=== PATIENT | male | born 1965 | race Caucasian/White ===

== ENCOUNTER 2016-04-21 09:25 | Outpatient (CLI) | payer BC, MEDICARE | END 2016-04-21 09:26 | disposition home or self-care (01) | DX: M50.30 Other cervical disc degeneration, unspecified cervical region (principal); M47.812 Spondylosis without myelopathy or radiculopathy, cervical region ==

== ENCOUNTER 2016-04-26 11:43 | Outpatient (CLI) | payer BC, MEDICARE | END 2016-04-26 11:44 | disposition home or self-care (01) | DX: E29.1 Testicular hypofunction (principal); Z79.899 Other long term (current) drug therapy ==

== ENCOUNTER 2016-05-18 09:47 | Outpatient (CLI) | payer BC, MEDICARE | END 2016-05-18 09:48 | disposition home or self-care (01) | DX: R05 Cough (principal); R50.9 Fever, unspecified ==

== ENCOUNTER 2017-06-24 08:00 | Outpatient (CLI) | payer BC, MEDICARE ==
[2017-06-24 13:11] LABS: BASOPHILS # (AUTO) 0.1 10^3/uL (0.0-0.1); BASOPHILS % (AUTO) 1.1 %; EOSINOPHILS # (AUTO) 0.4 10^3/uL (0.0-0.7); EOSINOPHILS % (AUTO) 4.3 %; HGB - HEMOGLOBIN 14.9 g/dL (14.0-18.0); LYMPHOCYTES # (AUTO) 2.6 10^3/uL (1.5-3.5); LYMPHOCYTES % (AUTO) 29.5 %; MEAN CORPUSCULAR HEMOGLOBIN 30.4 pg (27.0-31.0); MEAN CORPUSCULAR HGB CONC 34.1 g/dL (32.0-36.0); MEAN CORPUSCULAR VOLUME 89.3 fL (80.0-94.0); MEAN PLATELET VOLUME 7.4 fL (7.4-11.4); MONOCYTES # (AUTO) 0.5 10^3/uL (0.0-1.0); MONOCYTES % (AUTO) 5.9 %; NEUTROPHILS # (AUTO) 5.2 10^3/uL (1.5-6.6); NEUTROPHILS % (AUTO) 59.2 %; PLT - PLATELET COUNT 263 10^3/uL (130-450); RED BLOOD COUNT 4.89 10^6/uL (4.70-6.10); WHITE BLOOD COUNT 8.8 x10^3/uL (4.8-10.8)
[2017-06-24 13:49] LABS: ALBUMIN 4.6 g/dL (3.2-5.5); ALBUMIN/GLOBULIN RATIO 1.6 (1.0-2.2); ALKALINE PHOSPHATASE 53 IU/L (42-121); ALT ALANINE AMINOTRANSFERASE 40 IU/L (10-60); AST ASPARTATE AMINOTRANSFERASE 27 IU/L (10-42); BILIRUBIN,TOTAL 0.3 mg/dL (0.2-1.0); BUN - BLOOD UREA NITROGEN 10 mg/dL (6-20); CALCIUM 9.3 mg/dL (8.5-10.3); CARBON DIOXIDE - CO2 23 mmol/L (21-32); CHLORIDE 104 mmol/L (101-111); CHOL/HDL RATIO 4.3 (<5.0); CHOLESTEROL 160 mg/dL; CREATININE 0.8 mg/dL (0.6-1.2); GFR - MDRD 102 (>89); GLUCOSE 108 mg/dL (70-100); HDL CHOLESTEROL 37 mg/dL; LDL CHOLESTEROL,CALCULATED 100 mg/dL; LDL/HDL RATIO 2.7 (<3.6); SODIUM 136 mmol/L (135-145); TOTAL PROTEIN 7.4 g/dL (6.7-8.2); VLDL CHOLESTEROL 23 mg/dL
== END 2017-06-24 08:01 | disposition home or self-care (01) ==
LOC: LAB.N 08:00
PROVIDERS: ATTEND Physician Assistant Medical
DX: Z00.00 Encounter for general adult medical examination without abnormal findings (principal); Z79.899 Other long term (current) drug therapy; E55.9 Vitamin D deficiency, unspecified; E78.5 Hyperlipidemia, unspecified
CPT/HCPCS: 36415; 80053; 80061; 82306; 84443; 85025; G0103; 83721; 84153

== ENCOUNTER 2017-12-06 11:27 | Outpatient (CLI) | payer MEDICARE ==
--- NOTE | 2017-12-06 12:33 | XRAY Report ---
Procedure Date: 12/06/2017 Accession Number: [id number] / [id number] Procedure: XR - Chest 2 View X-Ray CPT Code: 69221 FULL RESULT: EXAM: CHEST RADIOGRAPHY EXAM DATE: 12/06/2017 12:14 PM. CLINICAL HISTORY: COSTOCHONDRITIS,RT,COPD W/ACUTE BRONCHITIS. Pain COMPARISON: 05/18/2016. TECHNIQUE: 2 views. FINDINGS: Lungs/Pleura: No focal opacities evident. No pleural effusion. No pneumothorax. Normal volumes. Mediastinum: Heart and mediastinal contours are unremarkable. Other: Stable degenerative change in the spine. IMPRESSION: Negative 2-view chest radiography for acute findings or significant change since 05/18/2016. [facility]
== END 2017-12-06 11:28 | disposition home or self-care (01) ==
LOC: DI 11:27
PROVIDERS: ATTEND Physician Assistant Medical
DX: M94.0 Chondrocostal junction syndrome [Tietze] (principal); J44.0 Chronic obstructive pulmonary disease with (acute) lower respiratory infection; J20.9 Acute bronchitis, unspecified
CPT/HCPCS: 71046

== ENCOUNTER 2018-03-03 08:59 | Outpatient (CLI) | payer MEDICARE ==
--- NOTE | 2018-03-03 16:41 | MRI Report ---
Reason: LOW BACK PAIN Procedure Date: 03/03/2018 Accession Number: [id number] / [id number] Procedure: MRI - Lumbar Spine W/O CPT Code: FULL RESULT: EXAM: MRI LUMBAR SPINE WITHOUT CONTRAST EXAM DATE: 03/03/2018 09:09 AM. CLINICAL HISTORY: Low back pain. Bilateral hip pain. COMPARISON: None. TECHNIQUE: Multiplanar, multisequence T1-weighted and fluid-sensitive sequences of the lumbar spine from T12 to S1 without contrast. Other: None. FINDINGS: Numbering assumes 5 [id number] lumbar-type vertebral bodies. Anterior wedging is seen at T11 and at T12 without marrow edema present. No abnormal signal is seen in the conus medullaris. No suspicious marrow replacement is seen. Grade 1 anterolisthesis of L5 relative to S1 is noted. L1-L2: No posterior disk protrusion. L2-L3: A minimal shallow right foraminal and far lateral protrusion is present. No central canal or foraminal stenosis. L3-L4: A minimal shallow foraminal and far lateral protrusion is seen bilaterally. Disk material attenuates the fat surrounding the L3 nerve root bilaterally. No central canal or foraminal stenosis. L4-L5: A minimal broad-based posterior disk protrusion is seen. L5-S1: A minimal posterior disk protrusion is seen with a posterior annular fissure noted. Facet/ligamentum flavum hypertrophy is seen throughout the lumbar spine, greatest at L4-L5. IMPRESSION: 1. Degenerative disk disease is seen from L2 through S1 without central canal or foraminal stenosis. There is a far lateral component to the disk protrusion bilaterally at L3-L4 with disk material attenuating the fat surrounding the L3 nerve root bilaterally. 2. No central canal or foraminal stenosis. 3. A posterior annular fissure is seen at L5-S1. 4. Minimal grade 1 anterolisthesis of L5 relative to S1 is noted. Comment: The following findings are so common in adults without low back pain that while we report their presence, they must be interpreted with caution and in the context of the clinical situation. (Reference Lolyk et al, Spine 2001) Prevalence of findings in patients without low back pain: Disk degeneration (any evidence): 92% Disk desiccation/T2 signal loss: 83% Disk height loss: 56% Disk bulge: 64% Disk protrusion: 32% Annular tear/high intensity zone: 38% [facility]
== END 2018-03-03 09:00 | disposition home or self-care (01) ==
LOC: DI 08:59
PROVIDERS: ATTEND Anesthesiology
DX: M51.26 Other intervertebral disc displacement, lumbar region (principal); M51.36 Other intervertebral disc degeneration, lumbar region; M51.37 Other intervertebral disc degeneration, lumbosacral region
CPT/HCPCS: 72148

== ENCOUNTER 2018-03-22 07:29 | Outpatient (CLI) | payer MEDICARE ==
[~2018-03-22 07:29] MED LIST: GADOBUTROL 10 MMOL/10 ML VIAL ONE
[2018-03-22] MEDS ORDERED: GADOBUTROL 10 MMOL/10 ML VIAL IVP ONE (10:31)
--- NOTE | 2018-03-22 11:30 | MRI Report ---
Reason: MALE PELVIC PAIN, GROIN PAIN LT Procedure Date: 03/22/2018 Accession Number: [id number] / [id number] Procedure: MRI - Abdomen W/WO CPT Code: FULL RESULT: EXAM: MR ABDOMEN WITH AND WITHOUT CONTRAST MR PELVIS WITH AND WITHOUT CONTRAST EXAM DATE: 03/22/2018 10:27 AM. CLINICAL HISTORY: Male pelvic pain, groin pain, left. COMPARISON: PELVIS W/WO 03/22/2018 7:42 AM. TECHNIQUE: Multiplanar breath-hold T1, T2, and DWI sequences obtained through the abdomen and pelvis on an MR scanner. Images obtained before and after administration of 10 mL Gadavist intravenous contrast. FINDINGS: Abdomen: Lung Bases: Unremarkable. Liver: The liver has normal size, morphology and signal. No evidence of mass or biliary dilatation. Gallbladder: There is a 1.2 cm cystic structure near the gallbladder fossa with a filling defect, likely atretic gallbladder with a small gallstone. Common bile duct is prominent and measures up to 1 cm. With functional absence of the gallbladder, this may be normal. Pancreas: The pancreas appears normal with no mass or ductal dilatation. Spleen: The spleen appears normal. Kidneys and Adrenals: The kidneys appear normal with no mass or hydronephrosis. There is a 1.8 cm left renal cyst. No right renal cyst. The adrenals appear normal. Bowel: The small bowel and colon appear normal with no inflammation or obstruction. Retroperitoneum: The retroperitoneal structures appear normal with no mass or lymphadenopathy. Pelvis: In the right inguinal region asymmetrically prominent lymph nodes which measure up to 1.4 cm in short axis when compared to the contralateral side. At the region of the left inguinal ligament there is a 2.1 x 1.6 cm heterogeneous area of enhancement at the entry to the left inguinal canal, possibly prior plug hernia repair. Bladder: The urinary bladder appears normal. Reproductive Organs: Small bilateral hydroceles are noted. There is questionably greater than expected enhancement of the scrotum and possibly the penile shaft, nonfocal. IMPRESSION: Heterogeneous enhancement of the entry to the left inguinal canal, possibly prior hernia repair. Asymmetrically prominent lymph nodes along the right inguinal chain in the setting of hyperenhancement of the scrotal sac hydroceles. Overall favor infectious or inflammatory etiology versus malignancy. Question atretic gallbladder with calculus, correlate to possible history of cholecystectomy. Recommendation: Testicular/inguinal canal ultrasound to evaluate for scrotal varicoceles as well as dynamically examined for inguinal hernia. Right upper quadrant ultrasound to further evaluate the gallbladder. [facility] The above findings of chronic gallbladder changes and likely left inguinal canal hernia repair were discussed with Keri Cooper by Dr. Cruzito Elise at 11:16 hrs on 03/22/18.
== END 2018-03-22 07:30 | disposition home or self-care (01) ==
LOC: DI 07:29
PROVIDERS: ATTEND Physician Assistant Medical
DX: R10.2 Pelvic and perineal pain (principal); R10.32 Left lower quadrant pain; N43.3 Hydrocele, unspecified; R59.0 Localized enlarged lymph nodes
CPT/HCPCS: 72197; 74183; A9585

== ENCOUNTER 2018-04-04 07:54 | Outpatient (CLI) | payer MEDICARE ==
--- NOTE | 2018-04-04 17:20 | MRI Report ---
Reason: LEG WEAKNESS,LEFT,GROIN PAIN,LEFT,OSTEOARTHRITIS,G Procedure Date: 04/04/2018 Accession Number: [id number] / [id number] Procedure: MRI - Sacrum/Coccyx CPT Code: FULL RESULT: EXAM: MRI SACRUM/SI JOINTS WITHOUT CONTRAST EXAM DATE: 04/04/2018 09:14 AM. CLINICAL HISTORY: Leg weakness left, groin pain left, osteoarthritis. COMPARISON: None. TECHNIQUE: Multiplanar, multisequence T1-weighted and fluid-sensitive sequences of the sacrum/sacroiliac joints without contrast. Other: None. FINDINGS: Bones: There is normal alignment of the sacrum and coccyx. No fractures or subluxations. No marrow edema or bone lesions. Sacroiliac Joints: No effusion or sacroiliitis. Right Hip: No acetabular retroversion. Femoral head/neck offset is within normal limits. No effusion. Left Hip: No acetabular retroversion. Femoral head/neck offset is within normal limits. No effusion. Symphysis Pubis: Unremarkable. Musculature: No edema or fatty atrophy. Neurologic Structures: The sacral neural foramina are patent, and the sacral nerve roots have normal signal intensity. The visualized sciatic nerves are unremarkable. Pelvic Cavity: The visualized bowel, bladder, and reproductive organs are unremarkable. No lymphadenopathy. No free fluid in the pelvis. Other: No bursitis. The subcutaneous tissues are unremarkable. IMPRESSION: No MRI abnormalities in the sacrum/SI joints. Presacral soft tissues, lumbosacral plexus, sciatic nerves, sciatic notch, piriformis musculature are all unremarkable. [facility] MUSCULOSKELETAL RADIOLOGY SECTION
--- NOTE | 2018-04-04 17:20 | MRI Report ---
Reason: LEG WEAKNESS,LEFT,GROIN PAIN,EFT,OSTEOARTHRITIS,G Procedure Date: 04/04/2018 Accession Number: [id number] / [id number] Procedure: MRI - Lumbar Spine W/O CPT Code: FULL RESULT: EXAM: MRI LUMBAR SPINE WITHOUT CONTRAST EXAM DATE: 04/04/2018 09:06 AM. CLINICAL HISTORY: Leg weakness, left; groin pain, left; osteoarthritis. COMPARISON: Lumbar spine without contrast 03/03/2018 9:09 AM. TECHNIQUE: Multiplanar, multisequence T1-weighted and fluid-sensitive sequences of the lumbar spine from T12 to S1 without contrast. Other: None. FINDINGS: Spinal Canal: The conus terminates at T12. The conus medullaris and cauda equina are unremarkable. Alignment: No scoliosis or spondylolisthesis. Bone Marrow: Five ggv-[id number] lumbar vertebral bodies are assumed. No gross fractures or bone lesions. No bone marrow replacement. Disk Levels/Facets: T12-L1: Some minimal disk dehydration. Prominent facets. No central or foraminal stenosis. L1-L2: Unremarkable. L2-L3: Mild right lateral bulge. No protrusion. No stenosis. Slightly prominent facets. L3-L4: Some disk dehydration, quite prominent facets. Mild right lateral bulge, no protrusion, no stenosis. L4-L5: Disk dehydration, annular tear and a small focal central disk protrusion is present overall similar in size since the previous exam. Annular tear is more visible. L5-S1: Disk dehydration, broad-based disk bulge is seen. Prominent facets. No central or foraminal stenosis. High- intensity zone/annular tear at the posterior disk margin again identified. Musculature: Normal. No edema or fatty atrophy. Other: The partially visualized retroperitoneum is unremarkable. IMPRESSION: 1. Conus terminates at T12 which is normal. No scoliosis, no listhesis. No fractures or bony lesions. 2. L2-L3 shows moderate lateral bulge without protrusion. Slightly prominent facets. No stenosis. 3. L3-L4 shows disk dehydration, quite prominent facets. Mild right lateral bulge, no protrusion or stenosis. 4. L4-L5 shows some disk dehydration, annular tear and a small focal central disk protrusion, overall similar in size since the previous exam. Annular tear is more visible now than before. 5. L5-S1 shows some disk dehydration, broad-based disk bulge. No central or foraminal stenosis. Comment: The following findings are so common in adults without low back pain that while we report their presence, they must be interpreted with caution and in the context of the clinical situation. (Reference Lolyk et al, Spine 2001) Prevalence of findings in patients without low back pain: Disk degeneration (any evidence): 92% Disk desiccation/T2 signal loss: 83% Disk height loss: 56% Disk bulge: 64% Disk protrusion: 32% Annular tear/high intensity zone: 38% [facility]
== END 2018-04-04 07:55 | disposition home or self-care (01) ==
LOC: DI 07:54
PROVIDERS: ATTEND Physician Assistant Medical
DX: M51.26 Other intervertebral disc displacement, lumbar region (principal); M15.9 Polyosteoarthritis, unspecified; R10.32 Left lower quadrant pain; G83.12 Monoplegia of lower limb affecting left dominant side
CPT/HCPCS: 72148; 72195

== ENCOUNTER 2018-04-05 20:43 | Outpatient (CLI) | payer MEDICARE ==
--- NOTE | 2018-04-06 15:49 | Ultrasound Report ---
Reason: LT GROIN PAIN Procedure Date: 04/05/2018 Accession Number: [id number] / [id number] Procedure: US - Testicle CPT Code: FULL RESULT: EXAM: SCROTAL ULTRASOUND EXAM DATE: 04/05/2018 09:19 PM. CLINICAL HISTORY: Left groin pain. COMPARISON: ABDOMEN W/WO 03/22/2018 9:04 AM PELVIS W/WO 03/22/2018 7:42 AM. TECHNIQUE: Real-time scanning was performed with static images obtained. Color-flow images were utilized. FINDINGS: Left inguinal canal: Multiple static transverse and longitudinal views were obtained of the left middle canal in the region of pain and prior herniorrhaphy repairs. No appreciable masses or fluid collections to suggest recurrent hernia. Portions of the left inguinal region are partially obscured by shadowing artifact presumably surgical mesh. Right: Testis: 4.3 x 3.3 x 2.5 cm. Normal size and echotexture. No mass, calcification, or abnormal blood flow. Epididymis: 2.7 x 0.5 x 0.6 cm. Normal size and echotexture. No mass or abnormal blood flow. Hydrocele: None. Varicocele: None. Left: Testis: 5.0 x 3.1 x 2.0 cm. Normal size and echotexture. No mass, calcification, or abnormal blood flow. Epididymis: 2.3 x 0.6 x 0.8 cm. Normal size and echotexture. No mass or abnormal blood flow. Hydrocele: None. Varicocele: None. IMPRESSION: Normal scrotal ultrasound. No specific sonographic abnormalities of the left inguinal canal. [facility]
== END 2018-04-05 20:44 | disposition home or self-care (01) ==
LOC: DI 20:43
PROVIDERS: ATTEND Physician Assistant Medical
DX: R10.32 Left lower quadrant pain (principal)
CPT/HCPCS: 76870

== ENCOUNTER 2018-05-12 07:15 | Outpatient (CLI) | payer MEDICARE ==
[2018-05-12] MEDS ORDERED: IOVERSOL 320 100 ML VIAL IVP ONE ×3 (07:16→08:01)
--- NOTE | 2018-05-12 08:35 | CT Report ---
Reason: CANCER OF ORAL CAVITY, MALIGNANT NEOPLASM LATERAL Procedure Date: 05/12/2018 Accession Number: [id number] / [id number] Procedure: CT - Neck Soft Tissue W/ CPT Code: FULL RESULT: EXAM: CT SOFT TISSUE NECK WITH CONTRAST. EXAM DATE: 05/12/2018 07:52 AM. 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 COMPARISONS: None.. TECHNIQUE: Routine soft tissue neck CT protocol. Reconstructions: Coronal and sagittal. IV contrast: 80 mL Optiray 320. In accordance with CT protocol optimization, one or more of the following dose reduction techniques were utilized for this exam: automated exposure control, adjustment of mA and/or KV based on patient size, or use of iterative reconstructive technique. FINDINGS: Allowing for dental metal streak artifact which partially obscures findings in the upper oral cavity region, there is no evidence for an asymmetric or enhancing space-occupying mass in the region of the oral cavity, tongue base or floor of mouth. Mild nonspecific symmetric fullness of the soft tissues at the lateral margins of the oropharynx which likely represents palatine tonsil tissue. Otherwise unremarkable appearance of the pharynx and larynx. No pathologically-enlarged cervical lymph nodes. No other evidence for a focal neck mass. Unremarkable appearance of the parotid and submandibular salivary glands and thyroid gland. Symmetric unremarkable appearance of the orbits. No focal intracranial-enhancing lesion is identified. Grossly clear lung apices. Moderately prominent maxillary and ethmoid sinus mucosal thickening. Mild sphenoid mucosal thickening. Clear mastoids. IMPRESSION: 1. No evidence for a focal malignant mass or adenopathy in the neck. 2. For increased diagnostic sensitivity, PET/CT imaging could be performed for cancer staging as clinically warranted. 3. Prominent maxillary and ethmoid sinus disease with notable mucosal thickening. [facility]
== END 2018-05-12 07:16 | disposition home or self-care (01) ==
LOC: DI 07:15
PROVIDERS: ATTEND Otolaryngology Plastic Surgery within the Head & Neck
DX: C04.1 Malignant neoplasm of lateral floor of mouth (principal); C06.9 Malignant neoplasm of mouth, unspecified; J32.0 Chronic maxillary sinusitis; J32.2 Chronic ethmoidal sinusitis
CPT/HCPCS: 70491; Q9967

== ENCOUNTER 2019-02-08 09:42 | Outpatient (CLI) | payer MEDICARE ==
[2019-02-08 10:15] LABS: BASOPHILS # (AUTO) 0.1 10^3/uL (0.0-0.1); EOSINOPHILS # (AUTO) 0.2 10^3/uL (0.0-0.7); EOSINOPHILS % (AUTO) 1.8 %; HGB - HEMOGLOBIN 15.5 g/dL (14.0-18.0); LYMPHOCYTES # (AUTO) 3.2 10^3/uL (1.5-3.5); LYMPHOCYTES % (AUTO) 30.4 %; MEAN CORPUSCULAR HEMOGLOBIN 30.8 pg (27.0-31.0); MEAN CORPUSCULAR HGB CONC 32.8 g/dL (32.0-36.0); MEAN CORPUSCULAR VOLUME 93.8 fL (80.0-94.0); MEAN PLATELET VOLUME 8.4 fL (7.4-11.4); MONOCYTES # (AUTO) 0.8 10^3/uL (0.0-1.0); MONOCYTES % (AUTO) 7.3 %; NEUTROPHILS # (AUTO) 6.1 10^3/uL (1.5-6.6); NEUTROPHILS % (AUTO) 58.5 %; PLT - PLATELET COUNT 326 10^3/uL (130-450); RED BLOOD COUNT 5.04 10^6/uL (4.70-6.10); RED CELL DISTRIBUTION WIDTH 14.2 % (12.0-15.0); WHITE BLOOD COUNT 10.4 x10^3/uL (4.8-10.8)
[2019-02-08 10:20] LABS: CALCIUM 9.8 mg/dL (8.5-10.3); CREATININE 0.8 mg/dL (0.6-1.2)
--- NOTE | 2019-02-08 18:18 | XRAY Report ---
Reason: SINUE INFECTION,FASCICULATIONS,CARCINOMA IN SITU Procedure Date: 02/08/2019 Accession Number: [id number] / [id number] Procedure: XR - Chest 2 View X-Ray CPT Code: 07356 FULL RESULT: EXAM: CHEST RADIOGRAPHY EXAM DATE: 02/08/2019 09:52 AM. CLINICAL HISTORY: SINUS INFECTION, congestion,CARCINOMA IN SITU. COMPARISON: CHEST 2 VIEW 12/06/2017 12:13 PM. TECHNIQUE: 2 views. FINDINGS: Lungs/Pleura: No focal opacities evident. No pleural effusion. No pneumothorax. Normal volumes. Mediastinum: Heart and mediastinal contours are unremarkable. Other: Degenerative change in the spine. IMPRESSION: Stable 2-view chest radiography compared with 12/06/2017. Clear lungs [facility]
--- NOTE | 2019-02-08 18:29 | XRAY Report ---
Reason: SINUE INFECTION,FASCICULATIONS,CARCINOMA IN SITU Procedure Date: 02/08/2019 Accession Number: [id number] / [id number] Procedure: XR - Sinus Complete CPT Code: FULL RESULT: EXAM: SINUS RADIOGRAPHY EXAM DATE: 02/08/2019 09:52 AM. CLINICAL HISTORY: Sinus INFECTION, congestion,CARCINOMA IN SITU. COMPARISONS: None. TECHNIQUE: 3 views. FINDINGS: Bones: No fractures or bone lesions. Sinuses: No opacities or fluid levels. Mastoid Air Cells: Clear. Other: Unremarkable. IMPRESSION: Negative sinus radiography. If symptoms persist consider CT. [facility]
== END 2019-02-08 09:43 | disposition home or self-care (01) ==
LOC: LAB 09:42
PROVIDERS: ATTEND Family Medicine
DX: J32.9 Chronic sinusitis, unspecified (principal); R25.3 Fasciculation; D00.07 Carcinoma in situ of tongue; E78.5 Hyperlipidemia, unspecified; E55.9 Vitamin D deficiency, unspecified; R73.9 Hyperglycemia, unspecified; M54.5 Low back pain; J44.9 Chronic obstructive pulmonary disease, unspecified
CPT/HCPCS: 36415; 70220; 71046; 80048; 85025

== ENCOUNTER 2019-10-23 08:00 | Outpatient (CLI) | payer MEDICARE | END 2019-10-23 23:59 | disposition home or self-care (01) | LOC: LAB.R 08:00 | PROVIDERS: ATTEND Family Medicine | DX: U07.1 COVID-19 (principal) | CPT/HCPCS: 81599 ==

== ENCOUNTER 2020-07-03 17:41 | Outpatient (CLI) | payer MEDICARE | END 2020-07-03 17:42 | disposition home or self-care (01) | LOC: COV 17:41 | PROVIDERS: ATTEND Family Medicine | DX: Z20.822 Contact with and (suspected) exposure to COVID-19 (principal) ==

== ENCOUNTER 2020-08-21 08:00 | Outpatient (CLI) | payer MEDICARE | END 2020-08-21 23:59 | disposition home or self-care (01) | LOC: LAB.N 08:00 | PROVIDERS: ATTEND Emergency Medicine | DX: J02.0 Streptococcal pharyngitis (principal) | CPT/HCPCS: 87070; 87077 ==

== ENCOUNTER 2020-09-10 08:00 | Outpatient (CLI) | payer MEDICARE ==
[2020-09-10 12:06] LABS: ALBUMIN 5.1 g/dL (3.2-5.5); ALBUMIN/GLOBULIN RATIO 1.5 (1.0-2.2); BASOPHILS # (AUTO) 0.1 10^3/uL (0.0-0.1); BASOPHILS % (AUTO) 0.9 %; BILIRUBIN,TOTAL 0.6 mg/dL (0.2-1.0); CALCIUM 9.6 mg/dL (8.5-10.3); CREATININE 0.7 mg/dL (0.6-1.2); EOSINOPHILS # (AUTO) 0.2 10^3/uL (0.0-0.7); EOSINOPHILS % (AUTO) 1.3 %; HCT - HEMATOCRIT 50.1 % (42.0-52.0); HGB - HEMOGLOBIN 16.2 g/dL (14.0-18.0); LYMPHOCYTES # (AUTO) 3.5 10^3/uL (1.5-3.5); LYMPHOCYTES % (AUTO) 27.2 %; MEAN CORPUSCULAR HEMOGLOBIN 30.2 pg (27.0-31.0); MEAN CORPUSCULAR HGB CONC 32.3 g/dL (32.0-36.0); MEAN CORPUSCULAR VOLUME 93.5 fL (80.0-94.0); MEAN PLATELET VOLUME 9.2 fL (7.4-11.4); MONOCYTES # (AUTO) 0.8 10^3/uL (0.0-1.0); MONOCYTES % (AUTO) 6.5 %; NEUTROPHILS % (AUTO) 63.4 %; PLT - PLATELET COUNT 407 10^3/uL (130-450); RED BLOOD COUNT 5.36 10^6/uL (4.70-6.10); RED CELL DISTRIBUTION WIDTH 13.9 % (12.0-15.0); TOTAL PROTEIN 8.4 g/dL (6.7-8.2); WHITE BLOOD COUNT 12.7 x10^3/uL (4.8-10.8)
[2020-09-10 12:17] LABS: THYROID STIMULATING HORMONE 0.91 uIU/mL (0.34-5.60)
== END 2020-09-10 23:59 | disposition home or self-care (01) ==
LOC: LAB.WCP 08:00
PROVIDERS: ATTEND Family Medicine
DX: R25.3 Fasciculation (principal); R53.83 Other fatigue; F51.04 Psychophysiologic insomnia; M15.9 Polyosteoarthritis, unspecified; M54.5 Low back pain; J44.9 Chronic obstructive pulmonary disease, unspecified; G89.29 Other chronic pain; Z79.899 Other long term (current) drug therapy
CPT/HCPCS: 36415; 80053; 84443; 85025